=== PATIENT | female | born 2000 | race Caucasian/White ===

== ENCOUNTER 2022-10-29 19:07 | Emergency (ER) | payer MEDICAID ==
[~2022-10-29] VITALS: Ht 154.9 cm; Wt 62.0 kg
[2022-10-29] MEDS ORDERED: KETOROLAC 60MG/2ML VIAL IM STA (23:02)
[2022-10-29] MEDS ORDERED: ONDANSETRON HCL 4MG/2ML INJ IM STA (23:02)
[2022-10-29] MEDS ORDERED: MAGNESIUM/ALUMINUM HYDROXIDE/SIMETHICONE 30ML UDC PO STA (23:02)
[2022-10-29 23:35] VITALS: BP 133/75
[2022-10-29 23:59] LABS: CLARITY URINE CLEAR (CLEAR); COLOR URINE YELLOW (YELLOW); KETONES URINE 4+ (NEGATIVE); LEUKOCYTE ESTERASE URINE NEGATIVE (NEGATIVE); NITRITE URINE NEGATIVE (NEGATIVE); OCCULT BLOOD URINE NEGATIVE (NEGATIVE); PH URINE 5.5 (4.5-8.0); PROTEIN URINE TRACE (NEGATIVE); SPECIFIC GRAVITY URINE 1.034 (1.005-1.030); UROBILINOGEN URINE 0.2 E.U./dL (0.2-1.0)
[2022-10-30 00:26] LABS: CHLORIDE 105 mEq/L (98-107)
[2022-10-30 00:39] LABS: BASOPHILS % 0.1 % (0.0-2.0); EOSINOPHILS % 0.1 % (0.0-5.0); HEMATOCRIT. 35.9 % (36.0-48.0); HEMOGLOBIN. 12.2 g/dL (12.0-16.0); LYMPHOCYTES % 10.7 % (20.0-50.0); MEAN CORPUSCULAR HEMOGLOBIN 30.4 pg (28.0-32.0); MEAN CORPUSCULAR VOLUME 89.1 fL (81.0-99.0); MEAN PLATELET VOLUME 7.7 fl (7.4-10.4); MONOCYTES % 4.9 % (2.0-8.0); NEUTROPHILS % 84.2 % (40.0-76.0); PLATELET 247 x1000/uL (130-400); RED BLOOD CELL COUNT 4.03 mill/uL (4.2-5.4); RED CELL DISTRIBUTION WIDTH 13.4 % (11.6-14.6)
[2022-10-30] MEDS ORDERED: ONDA4TAB50 PO (01:18)
[2022-10-30] MEDS ORDERED: [UNRECOGNIZED DRUG - CODE] PO (01:18)
[2022-10-30] MEDS ORDERED: ACET-2708 PO (01:18)
== END 2022-10-30 01:36 | disposition home or self-care (01) ==
LOC: ER 19:07
DX: K52.9 Noninfective gastroenteritis and colitis, unspecified (principal); Z20.822 Contact with and (suspected) exposure to COVID-19
CPT/HCPCS: 36415; 80053; 81003; 81025; 83690; 85025; 87426; 96372; 99284; C9803; J1885; J2405